=== PATIENT | female | born 1985 | race Caucasian/White ===

== ENCOUNTER → 2021-05-30 14:49 | Outpatient (CLI) | payer OTHER, SELFPAY ==
[2021-05-30 16:18] LABS: Follicle Stimulating Hormone 4.26 mIU/mL; Prolactin 10.4 ng/mL (3.0-18.6)
[2021-05-30 18:44] LABS: Rubella Antibody IgG 51.8 IU/mL (>15)
[2021-05-31 08:14] LABS: Rubeola Measles IgG 67.7 AU/mL (Immune >16.4); Varicella IgG Antibody 1127 index (Immune >165)
[2021-06-01 12:41] LABS: Mumps Virus IgG Antibody 52.4 AU/mL (Immune >10.9)
[2021-06-06 11:08] LABS: Anti Mullerian Hormone 11.6 ng/mL (.)
== END ==
PROVIDERS: Family Provider Family Medicine Geriatric Medicine; PCP Family Medicine; Referring Provider Obstetrics & Gynecology; Visit Provider Obstetrics & Gynecology
DX: N97.9 Female infertility, unspecified (principal)
CPT/HCPCS: 36415; 82397; 83001; 84146; 86735; 86762; 86765; 86787